=== PATIENT | male | born 2000 | race Caucasian/White ===

== ENCOUNTER 2020-08-21 12:07 | Emergency (ER) | payer OTHER ==
[~2020-08-21 12:07] MED LIST: BENTYL 20MG TAB20 MG PO; LODINE CAP 300300 MG PO; ZOFRAN ODT 4 MG4 MG PO; ZOFRAN4 MG PO
[2020-08-21 12:37] LABS: HEMOGLOBIN 15.9 gm/dl (14.0-17.5); RED BLOOD COUNT 5.28 M/UL (4.20-5.50); WHITE BLOOD COUNT 7.9 K/UL (4.5-11.0)
[2020-08-21 13:16] LABS: BUN/CREATININE RATIO 15 (0-10)
== END 2020-08-21 15:40 | disposition home or self-care (01) ==
LOC: ER1 12:07
DX: R10.11 Right upper quadrant pain (principal); I10 Essential (primary) hypertension; F17.290 Nicotine dependence, other tobacco product, uncomplicated
CPT/HCPCS: 80053; 81001; 83690; 85025; 99284; Q9967

== ENCOUNTER 2020-10-16 20:46 | Emergency (ER) | payer OTHER ==
[2020-10-16] MEDS ORDERED: AUGMENTIN 875-1 EACH PO (23:18)
== END 2020-10-16 23:34 | disposition home or self-care (01) ==
LOC: ER1 20:46
DX: S61.552A Open bite of left wrist, initial encounter (principal); S61.452A Open bite of left hand, initial encounter; I10 Essential (primary) hypertension; Z23 Encounter for immunization; W54.0XXA Bitten by dog, initial encounter
CPT/HCPCS: 12002; 73110; 73130; 90471; 90715; 99283

== ENCOUNTER 2020-10-17 14:52 | Emergency (ER) | payer OTHER ==
[~2020-10-17 14:52] MED LIST changes: +AUGMENTIN 875-1 EACH PO
== END 2020-10-17 21:20 | disposition left against medical advice (07) ==
LOC: ER1 14:52
DX: S61.552A Open bite of left wrist, initial encounter (principal); S51.051A Open bite, right elbow, initial encounter; I10 Essential (primary) hypertension; W54.0XXA Bitten by dog, initial encounter
CPT/HCPCS: 99283

== ENCOUNTER 2020-10-18 14:54 | Emergency (ER) | payer OTHER ==
[~2020-10-18] VITALS: Ht 154.9 cm; Wt 85.3 kg
== END 2020-10-18 17:45 | disposition home or self-care (01) ==
LOC: ER1 14:54
DX: L03.114 Cellulitis of left upper limb (principal); S51.852D Open bite of left forearm, subsequent encounter; S61.452D Open bite of left hand, subsequent encounter; Z23 Encounter for immunization; W54.0XXD Bitten by dog, subsequent encounter
CPT/HCPCS: 90375; 90376; 90471; 90675; 96372; 99283

== ENCOUNTER → 2020-10-21 | Outpatient (CLI) | payer OTHER ==
[~2020-10-21] VITALS: Ht 180.3 cm; Wt 85.3 kg
== END ==
LOC: OPSV 15:59
DX: Z29.14 Encounter for prophylactic rabies immune globulin (principal); T14.8XXA Other injury of unspecified body region, initial encounter; W54.0XXA Bitten by dog, initial encounter
CPT/HCPCS: 90471; 90675

== ENCOUNTER → 2020-10-25 | Outpatient (CLI) | payer OTHER ==
[~2020-10-25] VITALS: Ht 180.3 cm; Wt 85.3 kg
== END ==
LOC: OPSV 14:13
DX: T14.8XXA Other injury of unspecified body region, initial encounter (principal); W54.0XXA Bitten by dog, initial encounter; Z23 Encounter for immunization
CPT/HCPCS: 90471; 90675

== ENCOUNTER → 2020-11-01 | Outpatient (CLI) | payer OTHER ==
[~2020-11-01] VITALS: Ht 180.3 cm; Wt 85.3 kg
== END ==
LOC: OPSV 14:07
DX: T14.8XXA Other injury of unspecified body region, initial encounter (principal); W54.0XXA Bitten by dog, initial encounter
CPT/HCPCS: 90471; 90675

== ENCOUNTER 2021-11-06 14:53 | Emergency (ER) | payer OTHER | END 2021-11-06 19:40 | disposition home or self-care (01) | LOC: ER1 14:53 | DX: S91.352A Open bite, left foot, initial encounter (principal); Z20.3 Contact with and (suspected) exposure to rabies; W55.81XA Bitten by other mammals, initial encounter | CPT/HCPCS: 90675; 96372; 99283 ==

== ENCOUNTER → 2021-11-09 | Outpatient (CLI) | payer OTHER ==
[~2021-11-09] VITALS: Ht 180.3 cm; Wt 83.9 kg
== END ==
LOC: OPSV 13:28
DX: T14.8XXA Other injury of unspecified body region, initial encounter (principal); Z23 Encounter for immunization; W64.XXXA Exposure to other animate mechanical forces, initial encounter
CPT/HCPCS: 90471; 90675